=== PATIENT | male | born 1960 | race African-American/Black ===

== ENCOUNTER 2022-05-12 09:41 | Inpatient (IN) | payer SELFPAY ==
[2022-05-12] VITALS (22 sets, daily range): BP systolic 126–168; BP diastolic 76–108; PULSE 87–117; RESP 20–29; TEMP 36.9–37.1; O2SAT 87–97; BMI 20.2; BMI 23.3
--- NOTE | 2022-05-12 10:55 | CRLHL7_ITS ---
For Patients: As a result of the Century Cures Act, medical imaging exams and procedure reports are released immediately into your electronic medical record. You may view this report before your referring provider. If you have questions, please contact your health care provider. INDICATION: Shortness of breath TECHNIQUE: Chest 1 view COMPARISON: None FINDINGS: Cardiovascular and mediastinum: Heart size and vasculature are normal in caliber and appearance. Lungs and pleural spaces: Lungs are clear. No sign of infiltrate or mass. No sign of pleural effusion. No pneumothorax. Bones and soft tissues: No significant findings. IMPRESSION: No acute findings. Dictated by Lloyd Celestin MD @ 05/12/2022 11:25:52 AM (Electronically Signed)
[2022-05-12] MEDS: IPRAT-ALBUT 0.5-2.5 MG/3 ML NEB 1 NEB IH ×4 (11:16→20:29)
[2022-05-12] MEDS: predniSONE 20 MG TABLET 60 MG PO (11:16)
[2022-05-12 11:34] LABS: Lactate* 1.2 mmol/L (0.5-1.9)
[2022-05-12 11:42] LABS: Basophils Absolute Auto 0.04 K/uL (0.00-0.30); Basophils Percent Auto 0.5 % (0.0-3.0); Eosinophils Percent Auto 11.9 % (0.0-7.0); Hematocrit 43.8 % (37.0-53.0); Hemoglobin* 13.8 gm/dL (13.5-17.5); Lymphocytes Percent Auto 8.7 % (20-44); Mean Corpuscular HGB Conc 32 gm/dL (32-36); Mean Corpuscular Hemoglobin 29 pg (26-34); Mean Corpuscular Volume 92 fL (80-100); Monocytes Percent Auto 5.6 % (0.0-11.0); Neutrophils Percent Auto 73.3 % (42.0-72.0); Platelet Count* 222 K/uL (140-440); RDW Coefficient of Variation % 13.2 % (11.5-15.5); Red Blood Count 4.77 m/uL (4.30-5.90); White Blood Count* 7.32 K/uL (4.50-11.00)
[2022-05-12] MEDS: AZITHROMYCIN 250 MG TABLET 500 MG PO (11:45)
--- NOTE | 2022-05-12 11:45 | ED.GENADULT ---
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 He has been staying in his truck the past couple of days. He has underlying COPD, quit smoking last December. He is not on home oxygen. He says for the past 2 days he has had cough with sputum production, sometime streaked with blood. He has felt chilled, he thinks he has had a fever although he does not have a thermometer. He has felt weak and short of breath. He has not had chest pain aside from his chest feeling tight particularly with coughing. He has had some diarrhea today. No vomiting. No lower extremity swelling or pain. Denies history of heart disease. He does have high blood pressure. Related Data Home Medications Medication Instructions Recorded Confirmed albuterol sulfate 2.5 mg/3 mL 2.5 mg inhalation Q4H PRN 05/12/22 05/12/22 (0.083 %) solution for nebulization albuterol sulfate 90 mcg/actuation 1 puff inhalation Q4H PRN 05/12/22 05/12/22 aerosol inhaler amlodipine 10 mg tablet 10 mg PO DAILY 05/12/22 05/12/22 Allergies Allergy/AdvReac Type Severity Reaction Status Date / Time enalapril Allergy Verified 05/12/22 09:51 Review of Systems Status of ROS: Reports: 10 or more systems reviewed and unremarkable except as noted in History and below PFSH PFSH Medical History COPD (chronic obstructive pulmonary disease) Essential hypertension Former smoker Surgical History (Updated 05/12/22 @ 13:08 by Gin Saxena MD) Hx of hernia repair Social History (Updated 05/12/22 @ 13:44 by Gin Saxena MD) Smoking Status: Former smoker What tobacco products do you use: cigarettes Smoking quit date/years: <= 15 years ago Do you use any of these nicotine containing products: None Second hand tobacco smoke exposure: No How often do you have a drink containing alcohol: never How often do you have six or more drinks on one occasion: Never AUDIT-C Alcohol total score: 0 Non-prescribed substance use: denies use service: Yes Exam Narrative: Exam Narrative: Vital signs as noted above. In general, an alert, thin male, appears short of breath. Head: Normocephalic, atraumatic. Eyes: Pupils are equal reactive. Extraocular movements are full. Conjunctivae are normal. ENT: Mucous membranes are moist. Throat is normal. Neck: Supple without lymphadenopathy. No stridor. Heart: Regular rate and rhythm. No murmur or rub. Lungs: Diffuse wheezes bilaterally, prolonged expiratory phase. No crackles. Abdomen: Soft and nontender. No organomegaly. Extremities: Well perfused. No edema. No calf tenderness. Pulses intact. Neurologic: Patient is alert and oriented to person and place. Speech is fluent. Face is symmetric. Moves all extremities equally. Affect: Normal. Skin: Warm and dry. Well perfused. Const: Vital Signs, click to edit/add: Vital Signs - 24 hr 05/12/22 09:52 05/12/22 09:50 Temperature 98.5 F Pulse Rate [Apical ] 108 H Respiratory Rate 24 Blood Pressure [96 ] 126/104 H Pulse Oximetry 96 96 Oxygen Delivery Me thod Blow By Documenting provider has reviewed patient's vital signs: yes Course Course Hospital Course: Patient was given an albuterol neb by EMS and says that it did help with his breathing. He was noted to be hypoxic initially with reported O2 sats in the upper 80s on room air. He told me that his breathing felt pretty much back to baseline when I initially evaluated him, but he was on oxygen, 2-3 L at that time. I discussed a plan at that point, and he said that he really would prefer not to stay in the hospital because his dog is in the truck which is at the truck stop, the [place]. therefore, I discontinued his oxygen to see how he would do on room air. His O2 sats dropped to 82%, so I really encouraged him to stay in the hospital. He says he can not stay tonight, that his dog will be okay 1 night without him. He says he will need to go tomorrow however to let his dog out. For now this seems to be the best will be able to do. Overall presentation is most consistent with COPD exacerbation, viral versus bacterial respiratory infection considered. Also considered are coronary artery disease, acute coronary syndrome, congestive heart failure, pulmonary embolism, pleural effusion, pneumothorax. A chest x-ray by my review shows significant COPD but I do not see an obvious pneumothorax or other acute lung findings. Final radiology report is read as showing no acute findings. His white blood cell count is normal, platelets are normal. Slight left shift. He also has a slight eosinophilia, of uncertain significance. Metabolic panel is pending. Lactate is normal. LFTs, troponin, CRP, BNP are also pending at this time. His COVID and influenza are negative. Plan at this time will be to stay in the hospital. I have given him Rocephin and azithromycin to cover for respiratory pathogens which may be contributing to his COPD exacerbation. I have also given him 60 mg of prednisone as well as a 2nd neb, DuoNeb this time.. Reevaluation(s) Reevaluation #1: Patient remained stable from a respiratory standpoint during the remainder of his ER stay. Other labs reassuring, lecture lytes normal, troponin was negative, CRP less than 0.5. Transfered to floor for hospitalist care. Vital Signs Vital signs: Initial Vital Signs Pulse Oximetry 96 05/12/22 09:50 Vital Signs Pulse Oximetry 96 05/12/22 09:50 Temperature 98.5 F 05/12/22 09:52 Pulse Rate 108 H 05/12/22 09:52 Respiratory Rate 24 05/12/22 09:52 Blood Pressure 126/104 H 05/12/22 09:52 Pulse Oximetry 96 05/12/22 09:52 Oxygen Delivery Method 05/12/22 09:52 Medical Decision Making Lab Data Labs: Lab Results 05/12/22 05/12/22 05/12/22 Range/Units 10:55 11:25 11:25 WBC 7.32 (4.50-11.00) K/uL RBC 4.77 (4.30-5.90) m/uL Hgb 13.8 (13.5-17.5) gm/dL Hct 43.8 (37.0-53.0) % MCV 92 (80-100) fL MCH 29 (26-34) pg MCHC 32 (32-36) gm/dL RDW Coeff of Jc 13.2 (11.5-15.5) % Plt Count 222 (140-440) K/uL Neut % (Auto) 73.3 H (42.0-72.0) % Lymph % (Auto) 8.7 L (20-44) % Grimes % (Auto) 5.6 (0.0-11.0) % Eos % (Auto) 11.9 H (0.0-7.0) % Baso % (Auto) 0.5 (0.0-3.0) % Neut # (Auto) 5.40 (1.7-7.0) K/uL Lymph # (Auto) 0.60 L (0.90-2.90) K/uL Grimes # (Auto) 0.40 (0.00-0.90) K/UL Eos # (Auto) 0.90 H (0.00-0.50) K/uL Baso # (Auto) 0.04 (0.00-0.30) K/uL Abs Immat Gran (auto) 0.00 (0.00-0.30) K/uL Imm/Tot Granulo (auto) 0.0 % Sodium 142 (135-149) mmol/L Potassium 4.0 (3.6-5.1) mmol/L Chloride 106 (96-114) mmol/L Carbon Dioxide 30 (20-32) mmol/L BUN 21 (7-30) mg/dL Creatinine 1.2 (0.5-1.5) mg/dL Estimated Creat Clear 52.82 Estimated GFR 68 ml/min Glucose 90 (60-115) mg/dL Lactate (0.5-1.9) mmol/L Calcium 9.2 (8.4-10.6) mg/dL Total Bilirubin 0.7 (0.1-1.5) mg/dL Direct Bilirubin 0.1 (0.0-0.5) mg/dL AST 26 (12-35) U/L ALT 13 (4-50) U/L Alkaline Phosphatase 49 (40-150) U/L Troponin I < 0.01 L (0.01-0.04) ng/mL C-Reactive Protein < 0.5 L (0.5-1.0) mg/dL NT-Pro-B Natriuret Pep 72 (0-125) PG/mL Total Protein 6.7 (6.0-8.3) g/dL Albumin 4.3 (3.3-5.0) g/dL SARS-CoV-2 (PCR) Negative SARS-CoV-2 (Negative) Influenza Type A (PCR) Negative PCR FLU A (Negative) Influenza Type B (PCR) Negative PCR FLU B (Negative) RSV (PCR) Negative PCR RSV (Negative) 05/12/22 Range/Units 11:25 WBC (4.50-11.00) K/uL RBC (4.30-5.90) m/uL Hgb (13.5-17.5) gm/dL Hct (37.0-53.0) % MCV (80-100) fL MCH (26-34) pg MCHC (32-36) gm/dL RDW Coeff of Jc (11.5-15.5) % Plt Count (140-440) K/uL Neut % (Auto) (42.0-72.0) % Lymph % (Auto) (20-44) % Grimes % (Auto) (0.0-11.0) % Eos % (Auto) (0.0-7.0) % Baso % (Auto) (0.0-3.0) % Neut # (Auto) (1.7-7.0) K/uL Lymph # (Auto) (0.90-2.90) K/uL Grimes # (Auto) (0.00-0.90) K/UL Eos # (Auto) (0.00-0.50) K/uL Baso # (Auto) (0.00-0.30) K/uL Abs Immat Gran (auto) (0.00-0.30) K/uL Imm/Tot Granulo (auto) % Sodium (135-149) mmol/L Potassium (3.6-5.1) mmol/L Chloride (96-114) mmol/L Carbon Dioxide (20-32) mmol/L BUN (7-30) mg/dL Creatinine (0.5-1.5) mg/dL Estimated Creat Clear Estimated GFR ml/min Glucose (60-115) mg/dL Lactate 1.2 (0.5-1.9) mmol/L Calcium (8.4-10.6) mg/dL Total Bilirubin (0.1-1.5) mg/dL Direct Bilirubin (0.0-0.5) mg/dL AST (12-35) U/L ALT (4-50) U/L Alkaline Phosphatase (40-150) U/L Troponin I (0.01-0.04) ng/mL C-Reactive Protein (0.5-1.0) mg/dL NT-Pro-B Natriuret Pep (0-125) PG/mL Total Protein (6.0-8.3) g/dL Albumin (3.3-5.0) g/dL SARS-CoV-2 (PCR) (Negative) Influenza Type A (PCR) (Negative) Influenza Type B (PCR) (Negative) RSV (PCR) (Negative)
[2022-05-12 11:46] LABS: PCR FLU A Negative PCR FLU A (Negative); PCR FLU B Negative PCR FLU B (Negative); PCR RSV Negative PCR RSV (Negative)
[2022-05-12] MEDS: cefTRIAXone 1 GM in 0.9 % SODIUM CHLORIDE Mini-bag 100 ML IVPB (11:48)
[2022-05-12 11:49] LABS: SARS PCR* Negative SARS-CoV-2 (Negative)
[2022-05-12 11:50] LABS: Slide Review Reflex No
[2022-05-12 11:55] LABS: Albumin* 4.3 g/dL (3.3-5.0); Chloride* 106 mmol/L (96-114)
[2022-05-12 11:56] LABS: Sodium* 142 mmol/L (135-149)
[2022-05-12 11:58] LABS: Creatinine* 1.2 mg/dL (0.5-1.5); Est. Creatinine Clearance* 52.82; Estimated Glomerular Filt Rate 68 ml/min
[2022-05-12 11:59] LABS: Alanine Aminotransferase* 13 U/L (4-50); Alkaline Phosphatase* 49 U/L (40-150); Aspartate Amino Transferase* 26 U/L (12-35); Bilirubin Direct* 0.1 mg/dL (0.0-0.5); Bilirubin Total* 0.7 mg/dL (0.1-1.5); Blood Urea Nitrogen* 21 mg/dL (7-30); Calcium* 9.2 mg/dL (8.4-10.6); Carbon Dioxide* 30 mmol/L (20-32); Glucose* 90 mg/dL (60-115); Total Protein* 6.7 g/dL (6.0-8.3)
[2022-05-12 12:08] LABS: NT Pro B Type NatriureticPept* 72 PG/mL (0-125)
[2022-05-12 12:16] LABS: C Reactive Protein* < 0.5 mg/dL (0.5-1.0); Troponin I* < 0.01 ng/mL (0.01-0.04)
--- NOTE | 2022-05-12 13:06 | PM.IMHP1 ---
Hospitalist- H&P: HPI History of Present Illness Date Seen: 05/12/22 Chief complaint: Shortness of breath Narrative: Moises Foster is a 61 year old male, who presented to the emergency room by ambulance for a 2 day history of illness. Patient onset 2 days ago he ?did not feel good? with intermittent fevers and chills, followed by dyspnea. He has been coughing and cough has been productive, with occasional blood-tinged sputum. He has not had any chest pain. He has not had any lower extremity edema. He has no history of blood clots. Patient has a known history of COPD, quit smoking in 2020. ER course and findings: - acute hypoxic respiratory failure, requiring supplemental oxygen to keep saturations >90% - wheezing on exam, given prednisone, azithromycin, Rocephin, nebulizer treatment - no acute findings on chest x-ray - negative troponin - normal white blood count, eosinophil predominance in differential Given acute hypoxic respiratory failure in the setting of known COPD, patient is admitted to the hospital. In addition to COPD, patient has a history of essential hypertension. He was hospitalized once for 3 days approximately 15 years ago for DKA; only required a 1 month history of insulin administration. Patient has had normal blood sugars and A1Cs since. Previous physicians believe that this hospitalization was presumably secondary to acute pancreatic illness. Moises lives in [place], [place]. His girlfriend is in ICU charge nurse in [place]. Daughter Chloe Mitchell in [place] would be medical decision maker if needed. Patient requests full code status. 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 Review of Systems Status of ROS: Reports: 10 or more systems reviewed and unremarkable except as noted in History and below Narrative: No skin concerns, no GI symptoms. No other concerns on comprehensive ROS. PFSH PFSH Medical History COPD (chronic obstructive pulmonary disease) Essential hypertension Former smoker Surgical History (Updated 05/12/22 @ 13:08 by Gin Saxena MD) Hx of hernia repair Social History Smoking Status: Former smoker What tobacco products do you use: cigarettes Smoking quit date/years: <= 15 years ago Do you use any of these nicotine containing products: None Second hand tobacco smoke exposure: No How often do you have a drink containing alcohol: never How often do you have six or more drinks on one occasion: Never AUDIT-C Alcohol total score: 0 Non-prescribed substance use: denies use service: Yes Meds Home Medications and Allergies Home Medications Medication Instructions Recorded Confirmed Type albuterol sulfate 2.5 mg/3 mL 2.5 mg inhalation Q4H PRN 05/12/22 05/12/22 History (0.083 %) solution for nebulization albuterol sulfate 90 mcg/actuation 1 puff inhalation Q4H PRN 05/12/22 05/12/22 History aerosol inhaler amlodipine 10 mg tablet 10 mg PO DAILY 05/12/22 05/12/22 History Home Medication Comments: Also on Hydralazine BID, will ask pharmacy to clarify doses Allergies Allergy/AdvReac Type Severity Reaction Status Date / Time enalapril Allergy Verified 05/12/22 09:51 Exam Narrative: Exam Narrative: GEN: Alert and oriented, laying comfortably in bed and speaking in full sentences. Wearing supplemental oxygen HEENT: Normal external ears, EOMIs bilaterally, no scleral icterus, edentulous CV: RRR, No concerning murmurs, rubs, or gallops R: Wheezing noted bilateral apices, no rhonchi or rales. Air movement is adequate Ext: wwp, no concerning edema Skin: No concerning skin lesions or rashes on exposed skin Neuro: Nonfocal, no resting tremor, gait not observed Psych: Appropriate Const: Vital Signs, click to edit/add: Vital Signs - 24 hr 05/12/22 09:52 05/12/22 09:50 Temperature 98.5 F Pulse Rate [Apical ] 108 H Respiratory Rate 24 Blood Pressure [96 ] 126/104 H Pulse Oximetry 96 96 Oxygen Delivery Nc thod Blow By Hospitalist - H&P: Result Labs Labs: Short CBC 05/12/22 Range/Units 11:25 WBC 7.32 (4.50-11.00) K/uL Hgb 13.8 (13.5-17.5) gm/dL Hct 43.8 (37.0-53.0) % Plt Count 222 (140-440) K/uL BMP 05/12/22 11:25 Sodium 142 Potassium 4.0 Chloride 106 Carbon Dioxide 30 BUN 21 Creatinine 1.2 Glucose 90 Calcium 9.2 Cardiac Enzymes 05/12/22 Range/Units 11:25 Troponin I < 0.01 L (0.01-0.04) ng/mL Liver Function 05/12/22 Range/Units 11:25 Total Bilirubin 0.7 (0.1-1.5) mg/dL Direct Bilirubin 0.1 (0.0-0.5) mg/dL AST 26 (12-35) U/L ALT 13 (4-50) U/L Alkaline Phosphatase 49 (40-150) U/L Albumin 4.3 (3.3-5.0) g/dL Assessment and Plan Assessment and plan (1) COPD exacerbation: Problem comment: - given 60mg of Prednisone, DuoNeb, Ceftriaxone/Azithromycin in the ED Status: Acute Assessment and Plan: - continue nebs, steroids, antibiotics, supplemental oxygen - RT referral placed - consider chest CT if streaky hemoptysis persists (2) Essential hypertension: Problem comment: - on Amlodipine at home Status: Acute Assessment and Plan: - continue Amlodipine, follow BPs Plan - per above - Lovenox for ppx (no concern for acute bleeding with mild/streaky hemoptysis, normal Hgb) - Accuchecks given remote history of DKA admission (normal BG and A1Cs since, per patient report)
--- NOTE | 2022-05-12 14:27 | RESP.RT ---
Pt seen in ED. Requiring low flow oxygen to keep SPO2 greater than 90%. BBS with expiratory wheezing, fair aeration. Noted CXR. Suggest duonebs Q4 around the clock. Note: Anticipate Pt will not need home oxygen, but if he does, it will be difficult to qualify him, as he does not live in the area.
--- NOTE | 2022-05-12 14:37 | ED.NURSE ---
was noted to have sats as low as 82% on r/a when [address] rivers was informed. sats improved with 02 at 2 l-greater than 93%.
[2022-05-12] MEDS: ALBUTEROL INHALER 1 PUFF IH (17:20)
[2022-05-12] MEDS: guaiFENesin 100 MG/ML CUP PO (17:20)
[2022-05-12] MEDS: LORazepam 0.5 MG TABLET PO ×2 (18:24→20:29)
--- NOTE | 2022-05-12 19:49 | PC.NURSE ---
Nursing Care Hours: [id number] Pt this shift cooperative with cares. Anxious about SOB, duonebs and inhaler given without much effect. Ativan given per eMAR for anxiety, effective as pt was seen resting more comfortably in bed. Lungs sound wheezy and rhonchi on inspiration. Alert and oriented x4.
[2022-05-12] MEDS: ENOXAPARIN 40 MG/0.4 ML INJ SUBCUT (20:29)
[2022-05-12] MEDS: ALBUTEROL SULFATE 2.5 MG/3 ML VIAL.NEB NEB (22:21)
[2022-05-12] MEDS: METHYLPREDNISOLONE SOD SUCC 62.5 MG/ML (125) 125 MG IVP (22:57)
--- NOTE | 2022-05-12 22:58 | W.PM.CROSSCO ---
Subjective Subjective Date Seen: 05/12/22 Interval history: Patient noted to have increased work of breathing, oxygen saturations of 80%, came up with Albuterol nebulizer, position changes. Objective Objective Data Details: 2-3 word dyspnea Wheezing throughout bilateral lung ruiz, air movement decreased Assessment and Plan Assessment and plan (1) COPD exacerbation: Problem comment: - given 60mg of Prednisone, DuoNeb, Ceftriaxone/Azithromycin in the ED Status: Acute (2) Hypoxia: Status: Acute Plan - move to CCU status - initiate BIPAP - called and updated daughter Cheryl, who shared that her father has had multiple COPD admissions requiring BIPAP administration, was intubated once
[2022-05-12 23:25] LABS: HCO3 VBG 30 mmol/L (21-28); PCO2 VBG 50 mmHG (40-50); PO2 VBG 59.2 mmHG (25-47); pH VBG 7.389 (7.32-7.43)
--- NOTE | 2022-05-12 23:38 | PC.NURSE ---
Pt c/o sob despite PRN duo-nebs, Robitussin, and Ativan Pt in tripod position with increased work of breathing, SpO2 80% on 4L/O2 via NC. updated and in to see pt while albuterol neb given. Pt moved to CCU status and placed on Bipap. Work of breathing greatly improved, RR= 18 at this time with SpO2= 94%
[2022-05-13] VITALS (10 sets, daily range): BP systolic 136–166; BP diastolic 94–122; PULSE 94–106; RESP 16–28; TEMP 36.6–37.3; O2SAT 88–96
--- NOTE | 2022-05-13 05:14 | PC.NURSE ---
Shift note: The pt has been pleasant and cooperative. The pt has been on BIPAP throughout the night; he has been tolerating the machine without any distress. The pt said he has been sleeping better. FIO2 has been reduced from 50%-30% gradual as Spo2 was in the upper 90s. C/o short of breath exertion and denied short of breath after being on the BIPAP. Denied chest pain. SBA to the Bedside to use urinal
[2022-05-13] MEDS: METHYLPREDNISOLONE SOD SUCC 62.5 MG/ML (125) 125 MG IVP ×4 (06:36→22:38)
[2022-05-13] MEDS: IPRAT-ALBUT 0.5-2.5 MG/3 ML NEB 1 NEB IH ×3 (07:43→19:19)
[2022-05-13 07:56] LABS: Hematocrit 39.1 % (37.0-53.0); Hemoglobin* 12.6 gm/dL (13.5-17.5); Immature Granulocytes Abs Auto 0.01 K/uL (0.00-0.30); Immature Granulocytes Pct Auto 0.2 %; Lymphocytes Percent Auto 5.8 % (20-44); Mean Corpuscular HGB Conc 32 gm/dL (32-36); Mean Corpuscular Hemoglobin 29 pg (26-34); Mean Corpuscular Volume 89 fL (80-100); Monocytes Percent Auto 0.7 % (0.0-11.0); Neutrophils Percent Auto 93.3 % (42.0-72.0); Platelet Count* 190 K/uL (140-440); RDW Coefficient of Variation % 12.9 % (11.5-15.5); Red Blood Count 4.39 m/uL (4.30-5.90); White Blood Count* 5.51 K/uL (4.50-11.00)
[2022-05-13 07:57] LABS: HCO3 VBG 29 mmol/L (21-28); PCO2 VBG 48 mmHG (40-50); pH VBG 7.398 (7.32-7.43)
[2022-05-13 08:02] LABS: Slide Review Reflex No
--- NOTE | 2022-05-13 08:04 | P.IMPN_ITS ---
Progress Note: A&P Assessment and plan (1) COPD exacerbation: Problem details: - given 60mg of Prednisone, DuoNeb, Ceftriaxone/Azithromycin in the ED 05/12 - Continue BIPAP. Patient desires intubation if respiratory status were to worsen - Appreciate input from RT Status: Acute (2) Essential hypertension: Problem details: - continue home medications, age-appropriate control Status: Acute Plan - per above - Lovenox for ppx - daughter Cheryl updated by phone, questions answered. She's aware of father's tenuous status Time Spent With Patient Total time spent: 35 Subjective Date Seen: 05/13/22 Interval history: Moises tolerated BIPAP overnight. Remains tachypneic and hypoxic off of BiPAP; asks for it to be replaced after having breakfast. He was having anxiety this morning about leaving his dog in his semi-truck at the [employer]; the police department was able to place the dog in a detention, which provided Moises quite a bit of relief. No other concerns for hospitalist team. Exam Narrative: Exam Narrative: GEN: Alert, using accessory muscles while breathing HEENT: Normal external ears, EOMIs bilaterally, no scleral icterus CV: RRR, No concerning murmurs, rubs, or gallops R: Decreased air movement, wheezing throughout Ext: wwp, no concerning edema Skin: No concerning skin lesions or rashes on exposed skin Neuro: Nonfocal Psych: Appropriate Const: Vital Signs, click to edit/add: Vital Signs - 24 hr 05/12/22 09:52 05/12/22 09:50 05/12/22 13:53 Temperature 98.5 F 98.7 F Pulse Rate Pulse Rate [Apical ] 108 H Pulse Rate [Left P ulse Oximeter] 100 Respiratory Rate 24 20 Blood Pressure Blood Pressure [96 ] 126/104 H Blood Pressure [Ri ght Arm] 168/101 H Pulse Oximetry 96 96 90 Oxygen Delivery Me thod Blow By Nasal Cannula Oxygen Flow Rate 2.5 Fraction of Inspir ed Oxygen 05/12/22 14:05 05/12/22 10:05 05/12/22 10:50 Temperature Pulse Rate 109 H Pulse Rate [Apical ] 96 Pulse Rate [Left P ulse Oximeter] Respiratory Rate 20 20 Blood Pressure Blood Pressure [96 ] 137/100 H Blood Pressure [Ri ght Arm] Pulse Oximetry 90 96 87 L Oxygen Delivery Me thod Nasal Cannula Room Air Oxygen Flow Rate 2.5 Fraction of Inspir ed Oxygen 05/12/22 11:00 05/12/22 11:02 05/12/22 11:30 Temperature Pulse Rate 106 H 98 100 Pulse Rate [Apical ] Pulse Rate [Left P ulse Oximeter] Respiratory Rate Blood Pressure 157/102 H Blood Pressure [96 ] Blood Pressure [Ri ght Arm] Pulse Oximetry 94 95 94 Oxygen Delivery Me thod Oxygen Flow Rate Fraction of Inspir ed Oxygen 05/12/22 11:32 05/12/22 12:00 05/12/22 12:03 Temperature Pulse Rate 87 117 H 98 Pulse Rate [Apical ] Pulse Rate [Left P ulse Oximeter] Respiratory Rate Blood Pressure 145/95 H 143/103 H Blood Pressure [96 ] Blood Pressure [Ri ght Arm] Pulse Oximetry 95 88 91 Oxygen Delivery Me thod Oxygen Flow Rate Fraction of Inspir ed Oxygen 05/12/22 12:30 05/12/22 12:32 05/12/22 13:00 Temperature Pulse Rate 95 104 H 100 Pulse Rate [Apical ] Pulse Rate [Left P ulse Oximeter] Respiratory Rate Blood Pressure 135/76 Blood Pressure [96 ] Blood Pressure [Ri ght Arm] Pulse Oximetry 92 92 92 Oxygen Delivery Me thod Oxygen Flow Rate Fraction of Inspir ed Oxygen 05/12/22 13:03 05/12/22 13:30 05/12/22 13:32 Temperature Pulse Rate 97 94 115 H Pulse Rate [Apical ] Pulse Rate [Left P ulse Oximeter] Respiratory Rate Blood Pressure 135/85 137/81 Blood Pressure [96 ] Blood Pressure [Ri ght Arm] Pulse Oximetry 91 90 93 Oxygen Delivery Me thod Oxygen Flow Rate Fraction of Inspir ed Oxygen 05/12/22 10:30 05/12/22 09:50 05/12/22 15:00 Temperature Pulse Rate Pulse Rate [Apical ] 113 H Pulse Rate [Left P ulse Oximeter] 101 H Respiratory Rate 27 H 22 21 Blood Pressure Blood Pressure [96 ] 149/108 H Blood Pressure [Ri ght Arm] Pulse Oximetry 97 95 Oxygen Delivery Me thod Nasal Cannula Nasal Cannula Oxygen Flow Rate 2 Fraction of Inspir ed Oxygen 05/12/22 15:00 05/12/22 15:00 05/12/22 19:00 Temperature 98.5 F 98.8 F Pulse Rate Pulse Rate [Apical ] Pulse Rate [Left P ulse Oximeter] 101 H 112 H Respiratory Rate 21 21 26 H Blood Pressure Blood Pressure [96 ] Blood Pressure [Ri ght Arm] 133/89 146/106 H Pulse Oximetry 94 94 91 Oxygen Delivery Me thod Nasal Cannula Nasal Cannula Nasal Cannula Oxygen Flow Rate 4 4 4 Fraction of Inspir ed Oxygen 05/12/22 23:00 05/12/22 23:00 05/12/22 23:00 Temperature 98.5 F Pulse Rate Pulse Rate [Apical ] Pulse Rate [Left P ulse Oximeter] 87 87 Respiratory Rate 29 H 20 20 Blood Pressure Blood Pressure [96 ] Blood Pressure [Ri ght Arm] 140/93 H Pulse Oximetry 92 92 Oxygen Delivery Me thod Nasal Cannula BiPA P BiPAP Oxygen Flow Rate Fraction of Inspir ed Oxygen 25 25 05/13/22 03:00 05/13/22 03:00 05/13/22 04:00 Temperature 97.9 F Pulse Rate Pulse Rate [Apical ] Pulse Rate [Left P ulse Oximeter] 94 94 94 Respiratory Rate 16 20 20 Blood Pressure Blood Pressure [96 ] Blood Pressure [Ri ght Arm] 164/121 H Pulse Oximetry 96 Oxygen Delivery Me thod BiPAP Oxygen Flow Rate Fraction of Inspir ed Oxygen 40 Labs Labs: Laboratory Results - last 24 hr 05/12/22 05/12/22 05/12/22 10:55 11:25 11:25 WBC 7.32 RBC 4.77 Hgb 13.8 Hct 43.8 MCV 92 MCH 29 MCHC 32 RDW Coeff of Jc 13.2 Plt Count 222 Neut % (Auto) 73.3 H Lymph % (Auto) 8.7 L [place] % (Auto) 5.6 Eos % (Auto) 11.9 H Baso % (Auto) 0.5 Neut # (Auto) 5.40 Lymph # (Auto) 0.60 L [place] # (Auto) 0.40 Eos # (Auto) 0.90 H Baso # (Auto) 0.04 Abs Immat Gran (auto) 0.00 Imm/Tot Granulo (auto) 0.0 VBG pH VBG pCO2 VBG pO2 VBG HCO3 Sodium 142 Potassium 4.0 Chloride 106 Carbon Dioxide 30 BUN 21 Creatinine 1.2 Estimated Creat Clear 52.82 Estimated GFR 68 Glucose 90 Lactate Calcium 9.2 Total Bilirubin 0.7 Direct Bilirubin 0.1 AST 26 ALT 13 Alkaline Phosphatase 49 Troponin I < 0.01 L C-Reactive Protein < 0.5 L NT-Pro-B Natriuret Pep 72 Total Protein 6.7 Albumin 4.3 SARS-CoV-2 (PCR) Negative SARS-CoV-2 Influenza Type A (PCR) Negative PCR FLU A Influenza Type B (PCR) Negative PCR FLU B RSV (PCR) Negative PCR RSV 05/12/22 05/12/22 05/13/22 11:25 23:20 06:34 WBC 5.51 RBC 4.39 Hgb 12.6 L Hct 39.1 MCV 89 MCH 29 MCHC 32 RDW Coeff of Jc 12.9 Plt Count 190 Neut % (Auto) 93.3 H Lymph % (Auto) 5.8 L [place] % (Auto) 0.7 Eos % (Auto) 0.0 Baso % (Auto) 0.0 Neut # (Auto) 5.10 Lymph # (Auto) 0.30 L [place] # (Auto) 0.00 Eos # (Auto) 0.00 Baso # (Auto) 0.00 Abs Immat Gran (auto) 0.01 Imm/Tot Granulo (auto) 0.2 VBG pH 7.389 VBG pCO2 50 VBG pO2 59.2 H VBG HCO3 30 H Sodium Potassium Chloride Carbon Dioxide BUN Creatinine Estimated Creat Clear Estimated GFR Glucose Lactate 1.2 Calcium Total Bilirubin Direct Bilirubin AST ALT Alkaline Phosphatase Troponin I C-Reactive Protein NT-Pro-B Natriuret Pep Total Protein Albumin SARS-CoV-2 (PCR) Influenza Type A (PCR) Influenza Type B (PCR) RSV (PCR) 05/13/22 06:34 WBC RBC Hgb Hct MCV MCH MCHC RDW Coeff of Jc Plt Count Neut % (Auto) Lymph % (Auto) [place] % (Auto) Eos % (Auto) Baso % (Auto) Neut # (Auto) Lymph # (Auto) [place] # (Auto) Eos # (Auto) Baso # (Auto) Abs Immat Gran (auto) Imm/Tot Granulo (auto) VBG pH 7.398 VBG pCO2 48 VBG pO2 68.0 H VBG HCO3 29 H Sodium Potassium Chloride Carbon Dioxide BUN Creatinine Estimated Creat Clear Estimated GFR Glucose Lactate Calcium Total Bilirubin Direct Bilirubin AST ALT Alkaline Phosphatase Troponin I C-Reactive Protein NT-Pro-B Natriuret Pep Total Protein Albumin SARS-CoV-2 (PCR) Influenza Type A (PCR) Influenza Type B (PCR) RSV (PCR)
[2022-05-13 08:28] LABS: Chloride* 105 mmol/L (96-114); Potassium* 5.4 mmol/L (3.6-5.1); Sodium* 135 mmol/L (135-149)
[2022-05-13 08:31] LABS: Blood Urea Nitrogen* 27 mg/dL (7-30); Calcium* 9.2 mg/dL (8.4-10.6); Carbon Dioxide* 27 mmol/L (20-32); Est. Creatinine Clearance* 71.61; Estimated Glomerular Filt Rate 85 ml/min; Glucose* 133 mg/dL (60-115)
[2022-05-13] MEDS: AZITHROMYCIN 250 MG TABLET 500 MG PO (08:31)
[2022-05-13] MEDS: AMLODIPINE 10 MG TABLET PO (08:32)
[2022-05-13] MEDS: cefTRIAXone 1 GM in 0.9 % SODIUM CHLORIDE Mini-bag 100 ML IVPB (08:32)
[2022-05-13] MEDS: LORazepam 0.5 MG TABLET PO ×3 (08:33→20:50)
[2022-05-13] MEDS: guaiFENesin 100 MG/ML CUP PO ×2 (08:54→16:51)
[2022-05-13 13:20] LABS: pH VBG 7.39 (7.32-7.43)
[2022-05-13 13:21] LABS: HCO3 VBG 28 mmol/L (21-28); PCO2 VBG 47 mmHG (40-50); PO2 VBG 52.8 mmHG (25-47)
[2022-05-13 14:14] LABS: Potassium* 4.6 mmol/L (3.6-5.1)
[2022-05-13] MEDS: 0.9 % SODIUM CHLORIDE 250 ml IV (16:33)
--- NOTE | 2022-05-13 18:30 | PC.NURSE ---
End of shift. pt has been pleasant. he is irritable at times when he is sob. he was on Bipap this am and wanted it off now. RT came to see him he had Bi pap back on From [id number]. from 1630 till now he has been on 2 L nc tired 1L but sao2 was 82% he is 88-91 on 2L nc. he is also getting nebs, he is anxious and he is getting po Ativan. he get catastrophic when waking up at times with the mask on. he is doing aerobika when he can. he is eating , drinking and voiding. he does not like how hard he is breathing after the Bi pap comes off. he sleeps well with the Bi papa on. [employer] where here and got his keys for his semi and dog was taken to a local vet and keys where returned to pt. RT was in to see pt today and adjusted setting on the Bi papa. C/o short of breath exertion. Denied chest pain. SBA to the Bedside to use urinal. he did take off sao2 and walk to the BR. he was 80% on Ra and very SOB when he got back. explained to pt that we have o2 tubing to reach the BR. PRN duo-nebs, Robitussin, and Ativan Pt in tripod position at times when he is SOB. scds on at times. SL is patent. encourage not talking when is is SOB.
[2022-05-13] MEDS: ENOXAPARIN 40 MG/0.4 ML INJ SUBCUT (20:50)
[2022-05-13] MEDS: SODIUM CHLORIDE 0.9 % (FLUSH) 10 ML SYRINGE 5 ML IVF ×2 (20:50→22:39)
[2022-05-14] VITALS (9 sets, daily range): BP systolic 141–163; BP diastolic 98–122; PULSE 95–115; RESP 22–24; TEMP 36.8–37.2; O2SAT 90–93
--- NOTE | 2022-05-14 00:16 | PC.NURSE ---
Shift Note: Pt friendly and cooperative. Able to tolerate 2L/O2 via NC 88-90% but is intermittently using Bipap, in particular at HS. PRN Duo-nebs and Ativan given. With exertion pt does continue to c/o dyspnea and desats to low 80's despite O2. Sats improve with tripod positioning and pursed lip breathing. Pt needs to take occasional breaks during meals and conversation. Coarse bibasilar LS. Denies pain. Solu-medrol IVP.
[2022-05-14] MEDS: LORazepam 0.5 MG TABLET PO ×3 (02:25→13:32)
[2022-05-14] MEDS: IPRAT-ALBUT 0.5-2.5 MG/3 ML NEB 1 NEB IH ×4 (02:26→17:58)
[2022-05-14] MEDS: guaiFENesin 100 MG/ML CUP PO ×4 (02:27→17:17)
[2022-05-14] MEDS: METHYLPREDNISOLONE SOD SUCC 62.5 MG/ML (125) 125 MG IVP ×3 (03:26→15:47)
[2022-05-14] MEDS: ALBUTEROL SULFATE 2.5 MG/3 ML VIAL.NEB NEB (03:26)
[2022-05-14] MEDS: SODIUM CHLORIDE 0.9 % (FLUSH) 10 ML SYRINGE 5 ML IVF ×3 (03:26→10:20)
[2022-05-14 06:55] LABS: Basophils Absolute Auto 0.01 K/uL (0.00-0.30); Basophils Percent Auto 0.1 % (0.0-3.0); Hematocrit 39.4 % (37.0-53.0); Hemoglobin* 12.8 gm/dL (13.5-17.5); Immature Granulocytes Abs Auto 0.02 K/uL (0.00-0.30); Immature Granulocytes Pct Auto 0.2 %; Lymphocytes Percent Auto 2.7 % (20-44); Mean Corpuscular HGB Conc 33 gm/dL (32-36); Mean Corpuscular Hemoglobin 29 pg (26-34); Mean Corpuscular Volume 89 fL (80-100); Monocytes Percent Auto 1.6 % (0.0-11.0); Neutrophils Percent Auto 95.4 % (42.0-72.0); Platelet Count* 209 K/uL (140-440); Red Blood Count 4.43 m/uL (4.30-5.90); White Blood Count* 9.39 K/uL (4.50-11.00)
[2022-05-14 06:56] LABS: HCO3 VBG 31 mmol/L (21-28); PCO2 VBG 50 mmHG (40-50); PO2 VBG 53.4 mmHG (25-47); pH VBG 7.406 (7.32-7.43)
[2022-05-14 07:13] LABS: Chloride* 105 mmol/L (96-114); Potassium* 4.9 mmol/L (3.6-5.1); Slide Review Reflex No; Sodium* 138 mmol/L (135-149)
[2022-05-14 07:16] LABS: Carbon Dioxide* 30 mmol/L (20-32); Creatinine* 1.1 mg/dL (0.5-1.5); Estimated Glomerular Filt Rate 76 ml/min
[2022-05-14 07:17] LABS: Blood Urea Nitrogen* 28 mg/dL (7-30); Calcium* 9.3 mg/dL (8.4-10.6); Glucose* 135 mg/dL (60-115)
--- NOTE | 2022-05-14 07:38 | P.IMPN_ITS ---
Progress Note: A&P Assessment and plan (1) COPD exacerbation: Problem details: - given 60mg of Prednisone, DuoNeb, Ceftriaxone/Azithromycin in the ED 05/12 - Continue BIPAP. Patient desires intubation if respiratory status were to worsen - Appreciate input from RT Status: Acute Assessment and Plan: - patient continues to remain quite ill - I have discussed the case with operations forester at [facility]; while patient does not imminently intubation at this time, he may require higher level of support soon and transfer to a higher level of care facility is recommended. Unfortunately, [facility] does not have a bed at this time, so patient is placed on the waiting list for [facility] - we will continue to search for higher level of care beds throughout our transfer radius -continue IV steroids, p.r.n. neb treatments, antibiotics, anxiolytics (2) Essential hypertension: Problem details: - continue home medications, age-appropriate control Status: Acute Plan - per above - Lovenox for ppx - transfer to higher level of care facility if bed becomes available; sign out to Dr. Padilla Subjective Date Seen: 05/14/22 Interval history: Moises continues to require intermittent BiPAP administration for dyspnea and tachypnea. He is tolerating steroids, antibiotics, and nebs. He intermittently with tripod when he's off of BiPAP and on high flow. Exam Narrative: Exam Narrative: GEN: Alert, 2-3 word dyspnea, intermittent tachypnea HEENT: Normal external ears, EOMIs bilaterally, edentulous CV: Sinus tachycardia, No concerning murmurs, rubs, or gallops R: Air movement decreased throughout bilateral lung ruiz Ext: wwp, no concerning edema Skin: No concerning skin lesions or rashes on exposed skin Neuro: Nonfocal Psych: Appropriate Const: Vital Signs, click to edit/add: Vital Signs - 24 hr 05/13/22 09:02 05/13/22 08:00 05/13/22 08:00 Temperature 97.9 F Pulse Rate [Left P ulse Oximeter] 95 Respiratory Rate 20 28 H Blood Pressure [Ri ght Arm] 136/122 H Pulse Oximetry 96 91 Oxygen Delivery Me thod BiPAP Nasal Cannula Oxygen Flow Rate 4 2 Fraction of Inspir ed Oxygen 0.25 0.25 05/13/22 11:24 05/13/22 11:24 05/13/22 15:05 Temperature 98.8 F Pulse Rate [Left P ulse Oximeter] 102 H 102 H Respiratory Rate 28 H 22 21 Blood Pressure [Ri ght Arm] 154/94 H Pulse Oximetry 94 91 Oxygen Delivery Me thod Nasal Cannula Nasal Cannula Trac h Collar Oxygen Flow Rate Fraction of Inspir ed Oxygen 05/13/22 15:19 05/13/22 15:15 05/13/22 19:00 Temperature 99.0 F 99.1 F Pulse Rate [Left P ulse Oximeter] 100 100 103 H Respiratory Rate 18 18 26 H Blood Pressure [Ri ght Arm] 166/104 H 157/101 H Pulse Oximetry 93 88 Oxygen Delivery Me thod Nasal Cannula Trac h Collar Nasal Cannula Oxygen Flow Rate 2 2 Fraction of Inspir ed Oxygen 0.25 0.25 05/13/22 19:00 05/13/22 23:00 05/13/22 23:00 Temperature Pulse Rate [Left P ulse Oximeter] 103 H 106 H Respiratory Rate 26 H 26 H 26 H Blood Pressure [Ri ght Arm] Pulse Oximetry 88 Oxygen Delivery Me thod Nasal Cannula Oxygen Flow Rate 2 Fraction of Inspir ed Oxygen 0.25 05/13/22 23:00 05/14/22 03:22 05/14/22 03:30 Temperature 98.3 F 98.9 F Pulse Rate [Left P ulse Oximeter] 106 H 99 99 Respiratory Rate 26 H 22 22 Blood Pressure [Ri ght Arm] 158/95 H 159/98 H Pulse Oximetry 88 90 Oxygen Delivery Me thod Nasal Cannula Nasal Cannula Oxygen Flow Rate 2 2 Fraction of Inspir ed Oxygen 0.25 Labs Labs: Laboratory Results - last 24 hr 05/13/22 05/13/22 05/13/22 04:00 06:34 06:34 WBC 5.51 RBC 4.39 Hgb 12.6 L Hct 39.1 MCV 89 MCH 29 MCHC 32 RDW Coeff of Jc 12.9 Plt Count 190 Neut % (Auto) 93.3 H Lymph % (Auto) 5.8 L [place] % (Auto) 0.7 Eos % (Auto) 0.0 Baso % (Auto) 0.0 Neut # (Auto) 5.10 Lymph # (Auto) 0.30 L [place] # (Auto) 0.00 Eos # (Auto) 0.00 Baso # (Auto) 0.00 Abs Immat Gran (auto) 0.01 Imm/Tot Granulo (auto) 0.2 VBG pH 7.398 VBG pCO2 48 VBG pO2 68.0 H VBG HCO3 29 H Sodium 135 Potassium 5.4 H Chloride 105 Carbon Dioxide 27 BUN 27 Creatinine 1.0 Estimated Creat Clear 71.61 Estimated GFR 85 Glucose 133 H Calcium 9.2 05/13/22 05/13/22 05/14/22 13:15 13:15 05:55 WBC 9.39 RBC 4.43 Hgb 12.8 L Hct 39.4 MCV 89 MCH 29 MCHC 33 RDW Coeff of Jc 13.0 Plt Count 209 Neut % (Auto) 95.4 H Lymph % (Auto) 2.7 L [place] % (Auto) 1.6 Eos % (Auto) 0.0 Baso % (Auto) 0.1 Neut # (Auto) 9.00 H Lymph # (Auto) 0.30 L [place] # (Auto) 0.20 Eos # (Auto) 0.00 Baso # (Auto) 0.01 Abs Immat Gran (auto) 0.02 Imm/Tot Granulo (auto) 0.2 VBG pH 7.39 VBG pCO2 47 VBG pO2 52.8 H VBG HCO3 28 Sodium Potassium 4.6 Chloride Carbon Dioxide BUN Creatinine Estimated Creat Clear Estimated GFR Glucose Calcium 05/14/22 05/14/22 05:55 05:55 WBC RBC Hgb Hct MCV MCH MCHC RDW Coeff of Jc Plt Count Neut % (Auto) Lymph % (Auto) [place] % (Auto) Eos % (Auto) Baso % (Auto) Neut # (Auto) Lymph # (Auto) [place] # (Auto) Eos # (Auto) Baso # (Auto) Abs Immat Gran (auto) Imm/Tot Granulo (auto) VBG pH 7.406 VBG pCO2 50 VBG pO2 53.4 H VBG HCO3 31 H Sodium 138 Potassium 4.9 Chloride 105 Carbon Dioxide 30 BUN 28 Creatinine 1.1 Estimated Creat Clear 65.10 Estimated GFR 76 Glucose 135 H Calcium 9.3
[2022-05-14] MEDS: cefTRIAXone 1 GM in 0.9 % SODIUM CHLORIDE Mini-bag 100 ML IVPB (08:08)
[2022-05-14] MEDS: AZITHROMYCIN 250 MG TABLET 500 MG PO (08:08)
[2022-05-14] MEDS: AMLODIPINE 10 MG TABLET PO (08:09)
[2022-05-14] MEDS: ACETAMINOPHEN 325 MG TABLET 975 MG PO ×2 (08:09→16:45)
[2022-05-14 13:46] LABS: D Dimer Quantitative* < 0.27 ug/ml (0.00-0.50)
[2022-05-14 13:52] LABS: Troponin I* < 0.01 ng/mL (0.01-0.04)
--- NOTE | 2022-05-14 15:44 | PC.NURSE ---
End of shift. ? Pt is pleasant.? he was on Bipap most of the day. around noon he started to have more coughing and started to cough up phlegm. and increase in anxiety attacks Ativan was given. tried to have the pt work on breathing in thru nose pause and out thru the mouth. Pt is very anxious with coughing and also is saying that I am chocking and I can't breathe, I was able to talk him, thru these episodes and RT was in helping also. later he said he was not getting enough air. RT was in and increased the Bi pap to give a bigger breath. Pt did tell RT and nurse that this was not helping, so per RT we are trying to use High flow 30/30 and 36, md is aware hoping humidity will also help to clear secretions. he had chest pain after a coughing attack. pain was 7-8/10 and EKG and VS taken and MD was updated. 186/111 HR 125 1257 pain was 2/10 BOP was 155/97 and HR 101. he is also getting nebs, ? he is doing aerobic when he can.? he is eating , drinking and voiding. he is using the urinal at Bedside. he walked to the with 02 on to have a BM earlier in the day when he was feeling better. .? he did take his o2 off at times. SL is patent.? encourage not talking when is is SOB. his breathing is worse this afternoon complained to this am.
[2022-05-14] MEDS: MORPHINE 2 MG/ML inj 1 MG IVP ×2 (15:56→17:58)
[2022-05-14] MEDS: LORazepam 0.5 MG TABLET 1 MG PO ×2 (16:45→18:48)
--- NOTE | 2022-05-14 19:47 | PC.NURSE ---
Assumed care of this patient at 3pm today. CCU status, pt tripoding while sitting on edge of his bed at initial assessment, experiencing coughing spasms, c/o shortness of breath and a headache. Tele sinus tachycardia. High Flow Oxygen 30Litres/30 % FiO2/36 degrees. Please see eMar for multiple medications provided to decrease pt's apparent air hunger. Report called to Char Pardo RN at [facility] [place], [place] @ 1715 pm ( ) per transfer protocol. Pt's daughter Cheryl updated via phone conversation with primary RN. Transfer paperwork completed and VS with signed consent for transfer. BG 78 prior to dinner, pt drank a sprite and had a small bite of lemon cake. Report provided to EMS transport team at 1910 pm. Pt transported on Hi Flow Oxygen and telemetry via stretcher at 1936 pm with his personal belongings to [place].
== END 2022-05-14 19:36 | disposition short-term general hospital (02) | DRG 190 ==
LOC: ED 13:08 → MEDSURG 13:15
PROVIDERS: Family Medicine; Admitting Provider Family Medicine; Emergency Provider Emergency Medicine; Visit Provider Family Medicine
DX: J44.1 Chronic obstructive pulmonary disease with (acute) exacerbation (principal); J96.01 Acute respiratory failure with hypoxia; Z87.891 Personal history of nicotine dependence; I10 Essential (primary) hypertension
CPT/HCPCS: 36415; 71045; 80048; 80076; 82803; 82962; 83605; 83880; 84132; 84484; 85025; 85379; 86140; 87070; 87502; 87634; 87635; 93005; 94640; 94660; 94664; 94761; 99284; 99285; A9270; J0696; J1650; J2270; J2930; J7050; J7512

== ENCOUNTER 2022-05-14 19:15 | Outpatient (CLI) | payer SELFPAY | END 2022-05-14 19:16 | disposition home or self-care (01) | LOC: AMB 06-04 16:29 | PROVIDERS: Visit Provider Family Medicine | DX: J44.1 Chronic obstructive pulmonary disease with (acute) exacerbation (principal) | CPT/HCPCS: A0425; A0426 ==